=== PATIENT | male | born 1975 | race Caucasian/White ===

== ENCOUNTER 2023-07-17 05:28 | Emergency (ER) | payer SELFPAY ==
[2023-07-17 05:39] VITALS: BP 152/82; PULSE 78
== END 2023-07-17 06:28 | disposition home or self-care (01) ==
LOC: JD.ED 05:28
DX: K64.4 Residual hemorrhoidal skin tags (principal); Z79.82 Long term (current) use of aspirin; Z79.899 Other long term (current) drug therapy
CPT/HCPCS: 99282; 99283

== ENCOUNTER 2024-05-12 21:40 | Emergency (ER) | payer BC ==
[2024-05-12] MEDS: Ketorolac 0.5% Ophth Soln 5 ML Bottle EYELF ONE (22:33)
[2024-05-12] MEDS: Ciprofloxacin 0.3% Ophth Soln 5 ML Bottle EYELF ONE (22:35)
[2024-05-12 23:05] VITALS: BP 156/90; PULSE 57
== END 2024-05-12 22:55 | disposition home or self-care (01) ==
LOC: JD.ED 21:40
DX: S05.02XA Injury of conjunctiva and corneal abrasion without foreign body, left eye, initial encounter (principal); I10 Essential (primary) hypertension; K21.9 Gastro-esophageal reflux disease without esophagitis; Z79.82 Long term (current) use of aspirin; Z79.899 Other long term (current) drug therapy; W20.8XXA Other cause of strike by thrown, projected or falling object, initial encounter
CPT/HCPCS: 99283; A9270; 99282